=== PATIENT | female | born 1945 | race Caucasian/White ===

== ENCOUNTER 2017-02-15 01:42 | Emergency (ER) | payer MEDICARE ==
[~2017-02-15] VITALS: Ht 160 cm; Wt 81.0 kg
[2017-02-15] MEDS ORDERED: SODIUM CHLORIDE FLUSH 10ML SYR IVF ONE (02:30)
[2017-02-15] MEDS ORDERED: SODIUM CHLORIDE 0.9% 1,000ML IVBOLUS ONE (02:30)
[2017-02-15 02:35] LABS: ASPARTATE AMINO TRANSFERASE 24 U/L (15-37); BLOOD UREA NITROGEN 14 mg/dL (7-18)
[2017-02-15 02:40] LABS: IS PT STATUS REG ER OR PRE ER? YES
[2017-02-15 04:34] VITALS: BP 100/51
== END 2017-02-15 04:44 | disposition home or self-care (01) ==
LOC: ED 02:31
DX: R55 Syncope and collapse (principal); I10 Essential (primary) hypertension; R11.2 Nausea with vomiting, unspecified
CPT/HCPCS: 36415; 71010; 80053; 81001; 83880; 84484; 85025; 87086; 93005; 96360; 96361; 99285; J7030

== ENCOUNTER → 2018-10-25 | Outpatient (CLI) | payer MEDICARE | END | disposition home or self-care (01) | LOC: CFH 14:49 | PROVIDERS: ATTEND Internal Medicine | DX: M19.011 Primary osteoarthritis, right shoulder (principal); M25.411 Effusion, right shoulder; M62.58 Muscle wasting and atrophy, not elsewhere classified, other site ==

== ENCOUNTER 2019-10-16 13:28 | Outpatient (CLI) | payer MEDICARE | END 2019-10-16 23:59 | disposition home or self-care (01) | LOC: CFH 13:28 | PROVIDERS: ATTEND Internal Medicine Cardiovascular Disease | DX: I08.0 Rheumatic disorders of both mitral and aortic valves (principal) | CPT/HCPCS: 93306 ==

== ENCOUNTER 2021-05-23 09:33 | Outpatient (CLI) | payer MEDICARE | END 2021-05-23 23:59 | disposition home or self-care (01) | LOC: CVU 09:33 | PROVIDERS: ATTEND Internal Medicine Cardiovascular Disease | DX: I08.0 Rheumatic disorders of both mitral and aortic valves (principal) | CPT/HCPCS: 93306; 93356 ==